=== PATIENT | male | born 1935 | race Caucasian/White ===

== ENCOUNTER 2022-05-02 11:08 | Day surgery (SDC) | payer MEDICARE, OTHER ==
[~2022-05-02] VITALS: Ht 182.9 cm; Wt 87.7 kg
[2022-05-02] MEDS ORDERED: normal saline 1000ml 1,000 ML IV PRN (11:35)
[2022-05-02 12:25] VITALS: BP 127/87
[2022-05-02 12:27] LABS: BASOPHILS # (AUTO) 0.1 X10'3 (0-0.2); BASOPHILS % (AUTO) 1.1 % (0-1); EOSINOPHILS # (AUTO) 0.2 X10'3 (0-0.9); EOSINOPHILS % (AUTO) 3.1 % (0-6); HEMATOCRIT 43.7 % (42.0-52.0); HEMOGLOBIN 14.2 g/dl (14.0-17.9); LYMPHOCYTES # (AUTO) 0.8 X10'3 (1.1-4.8); LYMPHOCYTES % (AUTO) 10.1 % (21-51); MEAN CORPUSCULAR HGB CONC 32.5 g/dL (33.0-36.5); MEAN CORPUSCULAR VOLUME 95.4 FL (78-98); MONOCYTES # (AUTO) 0.6 X10'3 (0-0.9); MONOCYTES % (AUTO) 7.7 % (2-12); NEUTROPHILS # (AUTO) 6.1 X10'3 (1.8-7.7); PLATELET COUNT 149 X10'3 (140-440); RED BLOOD COUNT 4.58 X10'6 (4.70-6.10); RED CELL DISTRIBUTION WIDTH 14.1 % (11.5-14.5); WHITE BLOOD COUNT 7.8 X10'3 (4.5-11.0)
[2022-05-02] MEDS ORDERED: iohexol 300mg/ml 100ml inj. ONE (12:27)
[2022-05-02] MEDS ORDERED: LIDOcaine 1% 30ml preserv. free vial ONE (12:27)
[2022-05-02] MEDS ORDERED: LEVO175T7 PO (12:30)
[2022-05-02] MEDS ORDERED: SODI650T29 PO (12:30)
[2022-05-02] MEDS ORDERED: METO50TA17 PO (12:30)
[2022-05-02] MEDS ORDERED: WARF7.5T48 PO (12:30)
[2022-05-02] MEDS ORDERED: DONE10TA44 PO (12:30)
[2022-05-02] MEDS ORDERED: tylenol PO (12:30)
[2022-05-02] MEDS ORDERED: CALC0.2535 PO (12:30)
[2022-05-02] MEDS ORDERED: AMLO5TAB16 PO (12:30)
[2022-05-02] MEDS ORDERED: midazolam 1 mg/ML 2ml injection ONE (12:35)
[2022-05-02] MEDS ORDERED: FENTANYL CITRATE/PF 50 MCG/1 ML VIAL ONE (12:35)
[2022-05-02] MEDS ORDERED: ceFAZolin inj. 2,000 MG in dextrose 5%-water 100 ML IV ONE (12:40)
[2022-05-02 13:40] VITALS: BP 143/86
[2022-05-02 14:00] VITALS: BP 150/88
== END 2022-05-02 14:25 | disposition home or self-care (01) ==
LOC: SSTAY O 11:08
PROVIDERS: ATTEND Radiology Vascular & Interventional Radiology
DX: Z43.6 Encounter for attention to other artificial openings of urinary tract (principal); Z79.899 Other long term (current) drug therapy; Z98.890 Other specified postprocedural states; Z88.8 Allergy status to other drugs, medicaments and biological substances
CPT/HCPCS: 36415; 50435; 85025; 85610; C1729; C1769; J3490; J7030; Q9967; 50387; A4620; A6258; A6449; J2250; J3010